=== PATIENT | female | born 1995 | race Caucasian/White ===

== ENCOUNTER 2017-10-03 07:41 | Emergency (ER) | payer OTHER ==
[~2017-10-03] VITALS: Ht 170.2 cm; Wt 90.0 kg
[2017-10-03 07:42] VITALS: BP 138/83; PULSE 95; RESP 14; TEMP 98.1; O2SAT 100
--- NOTE | 2017-10-03 08:08 | PD ---
HPI Chief Complaint: Cold / Flu Symptoms Time Seen by Provider: 07:52 Travel History International Travel<30 days: No Contact w/Intl Traveler<30days: No Traveled to known affect area: No History of Present Illness HPI 21yo F who is 26 weeks presents to the ED with c/o cough,nasal congestion and throat pain since yesterday. Said her boyfriend is sick so she just wanted to come make sure everything is ok. Pt had diarrhea and vomiting 4 days ago. Had some right sided sharp chest pain after cough yesterday. Denies any current chest pain or sob. Denies any fever, headache, visual changes, focal weakness or numbness, abdominal pain, vaginal bleeding, vaginal discharge , dysuria, hematuria. PFSH Past Medical History Medical History: Denies Significant Hx ?: LMP: 04/04/17 Past Surgical History Surgical History: No Previous Surgery Social History Alcohol Use: No Tobacco Use: No Allergies-Medications (Allergen,Severity, Reaction): Coded Allergies: No Known Allergies (Unverified , 10/03/17) Reported Meds & Prescriptions Reported Meds & Active Scripts Active No Active Prescriptions or Reported Medications Review of Systems Except as stated in HPI: all other systems reviewed are Neg Physical Exam Narrative GENERAL: 21yo F not in distress. SKIN: Focused skin assessment warm/dry. HEAD: Atraumatic. Normocephalic. EYES: Pupils equal and round. No scleral icterus. No injection or drainage. ENT: +Increased nasal turbinates bilaterally. Throat: Uvula midline. No erythema or edema. No tonsillar exudate. NECK: No cervical lymph adenopathy. CARDIOVASCULAR: Regular rate and rhythm. No murmur appreciated. RESPIRATORY: No accessory muscle use. Clear to auscultation. Breath sounds equal bilaterally. Saturating at 99% on RA. GASTROINTESTINAL: Abdomen soft, gravid abdomen. Not tender to palpation. MUSCULOSKELETAL: No obvious deformities. No clubbing. No cyanosis. No edema. NEUROLOGICAL: Awake and alert. No obvious cranial nerve deficits. Motor grossly within normal limits. Normal speech. PSYCHIATRIC: Appropriate mood and affect; insight and judgment normal. Data Data Last Documented VS Vital Signs Date Time Temp Pulse Resp B/P (MAP) Pulse Ox O2 Delivery O2 Flow Rate FiO2 10/03/17 07:42 98.1 95 14 138/83 (101) 100 Orders Orders Electrocardiogram (10/03/17 ) Influenzae A/B Antigen (10/03/17 08:01) Group A Rapid Strep Screen (10/03/17 08:01) Urinalysis - C+S If Indicated (10/03/17 08:01) Ed Poc Ultrasound (10/03/17 ) Acetaminophen 650 Mg/20 Ml Liq (Tylenol (10/03/17 09:00) Strep Culture (Group A) (10/03/17 08:15) Nitrofurantoin Monohyd Macrocr (Macrobid (10/03/17 12:30) Labs Laboratory Tests Test 10/03/17 08:15 Urine Color YELLOW Urine Turbidity HAZY Urine pH 7.0 Urine Specific [place] 1.014 Urine Protein TRACE mg/dL Urine Glucose (UA) NEG mg/dL Urine Ketones NEG mg/dL Urine Occult Blood NEG Urine Nitrite NEG Urine Bilirubin NEG Urine Urobilinogen LESS THAN 2.0 MG/DL Urine Leukocyte Esterase SMALL Urine RBC 1 /hpf Urine WBC 5 /hpf Urine Squamous Epithelial Cells 14 /hpf Urine Transitional Epithelial Cells <1 /hpf Urine Bacteria FEW /hpf Urine Mucus FEW /lpf Microscopic Urinalysis Comment CULT NOT INDICATED MDM Medical Decision Making Medical Screen Exam Complete: Yes Emergency Medical Condition: Yes Interpretation(s) EKG: NSR 88bpm. Normal axis. TWI V2 and III. No ST segment elevation or depression. Differential Diagnosis Viral syndrome vs. URI vs. influenza vs. viral pharyngitis Narrative Course 21yo F who is well appearing and 26 weeks here with cold symptoms. Pt had some musculoskeletal right sided chest pain yesterday after coughing but denies any sob or chest pain now. Do not think this is cardiac. Pt is currently complaining of throat pain and cough. Pt is refusing CXR since she is and I do not think it is absolutely necessary at this time since pt denies any chest pain or sob and is speaking in complete sentences and saturating at 99% on RA. Lungs are also clear. UA showed small leukocyte. Even though culture is not indicated, there are few urine bacteria and pt is . Will treat bacteruria in . Influenza negative. Group A strep negative. Pt given acetaminophen and feels better. Denies any chest pain or sob. Pt wants to go home. Procedures Procedure Narrative Emergency Department Pelvic ultrasound was performed with patient consent. The curvilinear probe was used in the transverse and sagittal views within the suprapubic region revealing single intrauterine . heart rate was 145bpm. + movement. Diagnosis Primary Impression: URI (upper respiratory infection) Qualified Codes: J06.9 - Acute upper respiratory infection, unspecified Patient Instructions: General Instructions Departure Forms: Tests/Procedures Additional Instructions: Please follow up with your OBGYN in 1-2 days. Return to the ED if symptoms worsen. Med/Other Pt SpecificInfo: Prescription(s) given Scripts Acetaminophen (Tylenol) 325 Mg Tab 650 MG PO Q6H Y for PAIN SCALE 1 TO 4, #20 TAB 0 Refills Prov: Nikole Ruiz DO 10/03/17 Nitrofurantoin Monohydrate Macrocrystals (Macrobid) 100 Mg Capsule 100 MG PO BID for Infection for 5 Days, #10 CAP 0 Refills Prov: Nikole Ruiz DO 10/03/17 Disposition: 01 DISCHARGE HOME Condition: Stable Nikole Ruiz DO Oct 03, 2017 08:08
[2017-10-03 08:38] LABS: BACTERIA, URINE FEW /hpf; BILIRUBIN, URINE NEG (NEG); BLOOD, URINE NEG (NEG); GLUCOSE,URINE NEG (NEG); KETONE, URINE NEG (NEG); MUCUS URINE FEW /lpf (OCC); NITRITE,URINE NEG (NEG); SQUAMOUS EPITHELIAL CELL URINE 14 /hpf (0-5); TRANSITIONAL EPI CELLS, URINE <1 /hpf; URINE COLOR YELLOW (YELLW/STRAW); URINE LEUKOCYTE ESTERASE SMALL (NEG)
[2017-10-03] MEDS ORDERED: ACETAMINOPHEN 650 MG/20.3 ML UDC PO ONE (09:00)
[2017-10-03] MEDS ORDERED: NITROFURANTOIN MONOHYD MACROCR 100 MG CAP PO ONE (12:30)
[2017-10-03 12:34] VITALS: BP 124/78
[2017-10-03] MEDS ORDERED: MACR100C2 PO (12:40)
[2017-10-03] MEDS ORDERED: TYLE325T PO (12:40)
--- NOTE | 2017-10-03 16:45 | EKG ---
Date Performed: 10/03/2017 Time Performed: 08:11:08 PTAGE: 21 years EKG: Sinus rhythm NORMAL ECG NO PREVIOUS TRACING DOCTOR: Pop Moreland Interpretating Date/Time 10/03/2017 16:44:12
== END 2017-10-03 12:53 | disposition home or self-care (01) ==
LOC: NEPC 07:41
DX: O99.512 Diseases of the respiratory system complicating pregnancy, second trimester (principal); J06.9 Acute upper respiratory infection, unspecified; O26.892 Other specified pregnancy related conditions, second trimester; R07.89 Other chest pain; Z3A.26 26 weeks gestation of pregnancy
CPT/HCPCS: 81001; 87081; 87804; 87880; 93005; 99285